=== PATIENT | female | born 2000 | race Caucasian/White ===

== ENCOUNTER 2020-07-09 13:24 | Outpatient (CLI) | payer BC, SELFPAY ==
[2020-07-09 15:25] VITALS: BMI 28.3
[2020-07-09 15:34] VITALS: BP 146/87; PULSE 86
[2020-07-09 15:56] VITALS: BP 131/80; PULSE 85
[2020-07-09 16:05] LABS: Nitrazine Paper, PH Negative
== END 2020-07-09 16:08 | disposition home or self-care (01) ==
LOC: OPOB 15:30 → OBGYN 15:52
PROVIDERS: PCP Nurse Practitioner Family; Visit Provider Family Medicine
DX: O26.899 Other specified pregnancy related conditions, unspecified trimester (principal); Z3A.00 Weeks of gestation of pregnancy not specified; N89.8 Other specified noninflammatory disorders of vagina
CPT/HCPCS: 59025; 83986; 99211

== ENCOUNTER 2020-07-09 19:00 | Inpatient (IN) | payer BC, MEDICAID, SELFPAY ==
[2020-07-09] VITALS (19 sets, daily range): BP systolic 102–123; BP diastolic 58–77; PULSE 62–90; RESP 18; TEMP 36.3–36.4; BMI 28.3
[2020-07-09 18:09] LABS: Nitrazine Paper, PH Positive
[2020-07-09 18:23] LABS: Actim Prom Positive
[2020-07-09 20:15] LABS: Basophils % 0.1 %; Eosinophils % 0.2 %; Hematocrit 38.5 % (37.0-47.0); Hemoglobin 12.8 g/dL (11.5-15.3); Lymphocytes # 1.8 10^3/uL (1.5-6.5); Lymphocytes % 20.3 %; Mean Corpuscular HGB Conc 33.2 g/dL (30.0-36.0); Mean Corpuscular Volume 93.2 fL (81-99); Mean Platelet Volume 11.1 fL (7.4-10.4); Monocytes # 0.6 10^3/uL (0.2-0.9); Monocytes % 7.1 %; Neutrophils # 6.32 10^3/uL (1.8-8.0); Neutrophils % 71.8 %; Nucleated Red Blood Cells % 0 %; Platelet Count 196 10^3/cmm (130-400); Red Blood Count 4.13 10^6/uL (4.1-5.3); Red Cell Distribution Width 11.9 % (12.1-15.1); White Blood Count 8.8 10^3/uL (4.5-13.0)
[2020-07-09] MEDS: dextrose 5%-lactated ringers 1,000 ML 125 ML IV (20:38)
[2020-07-09] MEDS: oxytocin 30 UNIT/500 ML BAG IV (20:39)
[2020-07-10] VITALS (78 sets, daily range): BP systolic 91–175; BP diastolic 50–111; PULSE 57–108; RESP 15–18; TEMP 36.2–36.9; O2SAT 76–98
[2020-07-10] MEDS: lactated ringers 1,000 ML 999 ML IV ×2 (00:12→01:16)
[2020-07-10] MEDS: fentaNYL 50 mcg/mL INJ 2mL IV (00:17)
--- NOTE | 2020-07-10 01:10 | P.ANESASSM_ITS ---
Pre-Anesthetic Assessment Pre-Anesthetic Assessment: Height/Weight: Height 1.65 m Weight 77.111 kg Temp Pulse Resp BP Pulse Ox 97.5 F L 78 18 127/68 97 07/09/20 20:56 07/10/20 01:39 07/10/20 00:17 07/10/20 01:39 07/10/20 01:37 Preop Diagnosis: IUP Proposed Procedure: LABOR EPIDURAL Was Beta Dionicio taken within 24 hours: N/A Was Clonidine taken within 24 hours: N/A Social: Social History: No alcohol and No tobacco Exam: Pre-Anes Outpt Exam: alert, oriented x 3, clear to auscultation bilaterally and regular rate & rhythm Airway: Submandibular: WNL Cervical ROM: WNL MP: 1 History/ROS: No significant history except as noted Pulmonary: Pulmonary: None reported CV/HEM: CV/HEM: None reported : : None reported Hepatic: Hepatic: None reported GI: GI: None reported Metabolic: Metabolic: None reported Musc/skel: Musc/skel: None reported Neuropsych: Neuropsych: None reported Anesthetic Plan: ASA status: 1 Anesthesia: Anesthesia Evaluation Risk of > 500 ml blood loss (7ml/kg in children): No Meds/Allergies Current Medications: Current Medications Generic Name Dose Route Start Last Admin Trade Name Freq PRN Reason Stop Dose Admin Fentanyl 25 - 100 mcg 07/09/20 20:04 07/10/20 00:17 Fentanyl 50 Mcg/ Ml Inj 2ml IV 25 mcg Q1H PRN Administration SEVERE PAIN Dextrose/Lactated Ringer's 1,000 mls @ 125 m ls/hr 07/09/20 20:15 07/09/20 20:38 Dextrose 5%-Lact ated Ringers IV 125 mls/hr .Q8H TITI Administration Lactated Ringer's 1,000 mls @ 999 m ls/hr 07/09/20 20:04 07/10/20 01:16 Lactated Ringers IV 999 mls/hr .Q1H1M PRN Administration Per L&D Rescitati on Protocol Oxytocin 30 unit in 500 ml s @ 1 mls/hr 07/09/20 20:15 07/09/20 20:39 Pitocin IV 1 milliunit/min .Q24H TITI 1 mls/hr Administration Protocol 1 MILLIUNIT/MIN Ropivacaine 200 mg in 100 mls @ 13 mls/hr 07/09/20 20:15 07/10/20 01:38 Naropin Premix EPIDURAL 13 mls/hr .Q7H42M TITI Administration Lactated Ringer's 1,000 mls @ 999 m ls/hr 07/09/20 20:06 07/10/20 01:16 Lactated Ringers IV Infused .Q1H1M PRN Infusion See label comment s PFSH Anesthesia Female Reproductive History: : 1 Data Anesthesia CBC & Chem 7: 07/09/20 19:33 Other Labs: Laboratory Results - last 48 hr 07/09/20 07/09/20 18:00 19:33 WBC 8.8 RBC 4.13 Hgb 12.8 Hct 38.5 MCV 93.2 MCH 31.0 MCHC 33.2 RDW 11.9 L Plt Count 196 MPV 11.1 H Neut % (Auto) 71.8 Lymph % (Auto) 20.3 [place] % (Auto) 7.1 Eos % (Auto) 0.2 Baso % (Auto) 0.1 Neut # (Auto) 6.32 Lymph # (Auto) 1.8 [place] # (Auto) 0.6 Eos # (Auto) 0.0 Baso # (Auto) 0.0 Nucleated RBC % (auto) 0 Nucleated RBCs # 0.0 Insulin-like GF I Positive Cardiac Studies: No Data to Display
--- NOTE | 2020-07-10 01:44 | ANES.PROC ---
Anesthesia Procedures Procedure/Date: 07/10/20 Epidural: Time Out Performed: Yes Consents Signed: Procedure Consent Consent: requested by attending/covering physician Lumbar Level: L4-L5 Epidural position: sitting Epidural procedure: sterile prep of area, 1% lidocaine to numb the area, 18 g needle, negative for paresthesia passed, neg for paresthesia, test dose given, 1.5% xylocaine 1:200k epi (4ML), 0.2% Ropivacaine bolus ml (5ML), placed PCEA, no systemic response, sterile dressing applied, L.U.D. no apparent complications and 0.2% Ropiavacaine @ mls/hr (13)
--- NOTE | 2020-07-10 02:15 | ANES.PROC ---
Anesthesia Procedures Procedure/Date: 07/10/20 Procedure Narrative: Zofran 4mg and Decadron 4mg administered IVP for N/V. patient labor progressing rapidly from 5cm to 7cm. Fentanyl 100mcg per epidural for labor pains
[2020-07-10] MEDS: dextrose 5%-lactated ringers 1,000 ML 125 ML IV (02:17)
[2020-07-10] MEDS: lidocaine 2% INJ 20 mL INJECTION (04:15)
--- NOTE | 2020-07-10 04:37 | PM.DELIVERY ---
Delivery Note: Date of delivery: July 10, 2020 this 19-year-old 1 now para 1 female with an EDC of 07/15/2020 had spontaneous rupture of membranes earlier the evening of admission. She had been to [facility] labor and delivery earlier in the evening but at that time nitrazine was negative. When she returned it was definitely positive with a positive actin ROM. She was ramirez very irregularly and was started on Pitocin more with a moderate dose. She did well until she began having some occasional late decelerations when the Pitocin was on 11 mg/min the Pitocin was then cut to 6 and she was given a fluid bolus. The infant then recovered very well. She was given epidural anesthesia and quickly dilated to complete cervical dilatation. The epidural seem to take the edge off of some of it but she had lots of discomfort and pressure when she was ramirez. She pushed for probably close to an hour and was able to deliver by spontaneous vaginal livery healthy, viable male infant at 03 56. After delivery of the head the mouth and nose were suctioned at the perineum followed by delivery of the right shoulder anteriorly followed by the left shoulder posteriorly and the infant was completely delivered without problems. The infant was then suctioned again with a bulb syringe followed by placing the on mother's abdomen. After approximately 1 minute, the umbilical cord was clamped and then cut by the 's father. The umbilical cord had 3 blood vessels. There was no nuchal cord at delivery. The patient cried lustily. There was a small second-degree episiotomy followed by a tear that went to third degree perineal laceration. This was repaired using Vicryl suture and a layered surgical closure. Initially the vagina was repaired followed by the perineum in a layered fashion. She did receive a small amount of local anesthesia but the epidural work pretty well with the episiotomy repair. Infant required suctioning at the warmer but Apgars were 8 and 9 and the infant is doing very well at this time. Estimated blood loss approximately 243 mL. Pre-Delivery Course: This patient was followed by this physician throughout her course without significant problems or concerns. Maternal blood type was A+ with antibody screen negative. Hepatitis B, hepatitis C, RPR and HIV were negative. Rubella is immune and group B strep was negative. Initial maternal glucose screen was a little elevated at 167, but she had eaten prior to that and a glucose tolerance test was completely normal as well as hemoglobin A1c. The patient did very well throughout her course without significant problems or concerns. She had spontaneous rupture membranes at home shortly prior to admission. Delivery: Spontaneous vaginal delivery. Post-Delivery Status: Patient is doing well and will be followed for routine postdelivery care. A&P Assessment and plan (1) Normal spontaneous vaginal delivery: Patient did very well and presently is doing well. We will place an ice pack on her perineum as needed. We will continue routine orders and adjust orders as necessary. Status: Acute Coding Level of Care Code Acute Assistant Product Manager for Chg Fwd Diagnoses Normal spontaneous vaginal delivery O80
[2020-07-10] MEDS: benzocaine-menthol 78 gm Canister 1 SPRAY TOPICAL ×2 (05:56→07:47)
[2020-07-10] MEDS: lanolin oint 7 gm 1 APPLIC TOPICAL (05:57)
[2020-07-10] MEDS: ibuprofen 800 mg tablet PO ×3 (07:46→21:39)
[2020-07-10] MEDS: HYDROcodone-acetaminophen 5-325 mg Tablet PO ×3 (07:47→14:40)
[2020-07-10] MEDS: prenatal vitamin Capsule 1 CAP PO (09:21)
[2020-07-10] MEDS: docusate sodium 100 mg Capsule PO ×2 (09:21→18:20)
[2020-07-10 17:13] LABS: Hematocrit 29.8 % (37.0-47.0); Hemoglobin 9.8 g/dL (11.5-15.3); Mean Corpuscular HGB Conc 32.9 g/dL (30.0-36.0); Mean Corpuscular Hemoglobin 31.1 pg (28.0-34.0); Mean Corpuscular Volume 94.6 fL (81-99); Mean Platelet Volume 11.2 fL (7.4-10.4); Platelet Count 154 10^3/cmm (130-400); Red Blood Count 3.15 10^6/uL (4.1-5.3); Red Cell Distribution Width 12.1 % (12.1-15.1); White Blood Count 11.8 10^3/uL (4.5-13.0)
[2020-07-11 05:27] VITALS: BP 104/64; PULSE 72
[2020-07-11] MEDS: docusate sodium 100 mg Capsule PO (08:31)
[2020-07-11] MEDS: prenatal vitamin Capsule 1 CAP PO (08:31)
[2020-07-11] MEDS: ibuprofen 800 mg tablet PO (08:31)
[2020-07-11 08:32] VITALS: BP 112/61; PULSE 115; RESP 16; TEMP 36.4
--- NOTE | 2020-07-11 08:43 | P.DS_ITS ---
Discharge Providers PRODUCT SAFETY ADMINISTRATOR Date of Admission: 07/09/20 19:00 Date of Discharge: 07/11/20 Attending Provider at Admission: Ronni Horton MD Attending Provider at Discharge: Ronni Horton MD Primary Care Provider: Lorelei Quintanilla APN Diagnoses at Discharge Discharge Diagnosis (1) Normal spontaneous vaginal delivery: Status: Acute Reason for Visit Reason for Visit: LEAKING FLUID Hospital Course Hospital Course Patient delivered by spontaneous vaginal delivery very early yesterday morning after spontaneous rupture of membranes. Since delivery, she has done extremely well. She is breast-feeding well using a breast shield and is ambulating well and tolerating a regular diet. She is felt to be stable for discharge this morning. Information Peripartum Data: Infant Delivery Method: Vaginal Physical Exam Const: COMMON NORMALS: no acute distress Resp: COMMON NORMALS: normal respiratory effort, No retractions and clear to auscultation bilaterally AUSCULTATION: clear to auscultation bilaterally Cardio: COMMON NORMALS: regular rate and regular rhythm RATE: regular rate RHYTHM: regular rhythm GI: COMMON NORMALS: Normal to inspection, nondistended, normoactive bowel sounds present, Soft to palpation (Fundus is firm.) and non-tender PALPATION: Yes Soft to palpation (Fundus is firm.) Extremity: COMMON NORMALS: normal to inspection, full ROM and no pedal edema Neuro: COMMON NORMALS: no focal motor deficits and no sensory deficits noted Psych: COMMON NORMALS: mental status grossly normal, cooperative and normal affect Urinary Catheter Management^: Huitron: Cath Placed During This Visit: yes, but has since been removed by the nurse Reason for Continuing Indwelling Catheter: Decision to DC Catheter Urinary Catheter Date of Insertion: 07/10/20 Urinary Catheter Time of Insertion: 01:55 Date Urinary Catheter Removed: 07/10/20 Time Urinary Catheter Discontinued: 02:25 Discharge Data Data Completed and Pending: Labs from last 24 hours 07/10/20 16:33 WBC 11.8 RBC 3.15 L Hgb 9.8 L Hct 29.8 L MCV 94.6 MCH 31.1 MCHC 32.9 RDW 12.1 Plt Count 154 MPV 11.2 H Vitals: Last Vital Signs Temp 97.5 F L 07/11/20 08:32 Pulse 115 H 07/11/20 08:32 Resp 16 07/11/20 08:32 BP 112/61 07/11/20 08:32 Pulse Ox 82 L 07/10/20 02:17 Discharge Plan Discharge Patient Disposition: Home Condition: Stable Prescriptions: New docusate sodium [DOK] 100 mg Capsule 100 mg PO BID Qty: 60 RF: 2 ibuprofen 800 mg Tablet 800 mg PO TID Qty: 90 RF: 2 Continued 1 mg Tablet 1 tab PO DAILY RF: 0 Discharge Orders: Discharge Order (Routine); Ordered 07/11/20 Ordered By: Ronni Horton Referrals: Ronni Horton MD [Physician] - 08/24/20 2:15 pm (Your 6 week post- appointment is scheduled for 08/24/20 at 2:[address] Horton. ) Discharge Diet: Usual diet Discharge Activity: Resume usual activity Patient Instructions: Vitamins (By mouth), Your Baby (GEN), Pre-eclampsia and Eclampsia (DC), Bleeding (DC), OB Discharge Report, OB Food/Drug Interaction Guide, OB Proud Parent Packet, OB Vaginal Deliveries, Abnormal Bleeding Discharge Attestations PRODUCT SAFETY ADMINISTRATOR Time Spent in Discharge Care*: less than 30 min Specific Discharge Activities: Specific discharge activities: educating patient, documenting/other paperwork and evaluating patient/reviewing data Coding Level of Care Code Acute Medical Administrative for Chg Fwd Diagnoses Normal spontaneous vaginal delivery O80
[2020-07-11 09:41] VITALS: BP 112/61; PULSE 115; RESP 16; TEMP 36.4
== END 2020-07-11 09:35 | disposition home or self-care (01) | DRG 768 ==
LOC: OBGYN 07-10 07:50 → OPOB 07-14 12:08 → OBGYN 07-14 12:08
PROVIDERS: Admitting Provider Family Medicine; PCP Nurse Practitioner Family; Visit Provider Family Medicine
DX: O76 Abnormality in fetal heart rate and rhythm complicating labor and delivery (principal); Z37.0 Single live birth; O70.20 Third degree perineal laceration during delivery, unspecified; Z3A.39 39 weeks gestation of pregnancy
CPT/HCPCS: 36415; 51702; 59409; 83986; 84112; 85025; 85027; 98960; J1100; J2405; J2795; J3010

== ENCOUNTER 2021-08-10 19:45 | Outpatient (CLI) | payer BC, MEDICAID, SELFPAY ==
[2021-08-10 19:58] VITALS: BP 123/78; PULSE 88
[2021-08-10 20:03] VITALS: BMI 26.6
[2021-08-10 20:05] VITALS: RESP 16
[2021-08-10 20:19] VITALS: BP 108/65; PULSE 80
== END 2021-08-10 20:33 | disposition home or self-care (01) ==
LOC: OPOB 19:52 → OBGYN 19:53
PROVIDERS: PCP Nurse Practitioner Family; Visit Provider Family Medicine
DX: O26.899 Other specified pregnancy related conditions, unspecified trimester (principal); Z3A.00 Weeks of gestation of pregnancy not specified; R10.9 Unspecified abdominal pain
CPT/HCPCS: 59025; 99211

== ENCOUNTER 2021-09-09 12:30 | Outpatient (CLI) | payer BC, MEDICAID, SELFPAY ==
[2021-09-09] VITALS (9 sets, daily range): BP systolic 105–122; BP diastolic 56–74; PULSE 76–89; RESP 16; TEMP 36.5; BMI 26.6
[2021-09-09 13:25] LABS: Nitrazine Paper, PH Negative
[2021-09-09 13:44] LABS: Actim Prom Negative
--- NOTE | 2021-09-09 18:56 | PC.NURSE ---
patient left unit at 1357
== END 2021-09-09 18:56 | disposition home or self-care (01) ==
LOC: OPOB 12:37 → OBGYN 12:38
PROVIDERS: PCP Nurse Practitioner Family; Visit Provider Family Medicine
DX: O26.899 Other specified pregnancy related conditions, unspecified trimester (principal); Z3A.00 Weeks of gestation of pregnancy not specified; N89.8 Other specified noninflammatory disorders of vagina
CPT/HCPCS: 59025; 83986; 84112; 99211

== ENCOUNTER 2021-09-14 18:49 | Inpatient (IN) | payer BC, MEDICAID, SELFPAY ==
[2021-09-14] VITALS (47 sets, daily range): BP systolic 94–141; BP diastolic 56–88; PULSE 65–121; TEMP 36.6–36.7; O2SAT 97–100; BMI 27.1
[2021-09-14 14:56] LABS: Basophils % 0.2 %; Eosinophils % 0.2 %; Hematocrit 39.5 % (37.0-47.0); Hemoglobin 13.4 g/dL (11.5-15.3); Mean Corpuscular HGB Conc 33.9 g/dL (30.0-36.0); Mean Corpuscular Hemoglobin 32.1 pg (28.0-34.0); Mean Corpuscular Volume 94.5 fl (81-99); Mean Platelet Volume 11.2 fL (7.4-10.4); Monocytes # 0.7 10^3/uL (0.2-0.9); Monocytes % 8.3 %; Neutrophils # 5.94 10^3/uL (1.8-8.0); Neutrophils % 67.6 %; Nucleated Red Blood Cells % 0 %; Platelet Count 179 10^3/cmm (130-400); Red Blood Count 4.18 10^6/uL (4.1-5.3); Red Cell Distribution Width 12.2 % (12.1-15.1); White Blood Count 8.8 10^3/uL (4.5-13.0)
[2021-09-14] MEDS: miSOPROStol 100 mcg tablet 25 MCG VAGINAL (14:56)
[2021-09-14] MEDS: lactated ringers 1,000 ML 999 ML IV ×2 (16:59→18:02)
--- NOTE | 2021-09-14 18:58 | PM.OPHPUD ---
Labor & Delivery H&P Update Date of Procedure: September 14, 2021 Date H&P Performed: 09/13/21 Changes to previous documentation: The patient's cervix was dilated to 5 cm, 60% effaced. Admission Diagnosis: Preop diagnosis: IUP Planned procedure: Spontaneous vaginal delivery Other information: Patient is a 20-year-old 2 para 1-0-0-1 at 39 weeks estimated gestational age who presented to the hospital complaining of vaginal pressure. She was noted to be 5 cm dilated and 60% effaced. Her labs were unremarkable. Her blood type was a positive. Her antibody screen was negative. She was rubella immune. Her glucose screen was negative. She was GBS negative. The remainder of her labs were within normal limits. Related Problem List Diagnoses (1) 39 weeks gestation of : I anticipate a routine labor process and a spontaneous vaginal delivery.
--- NOTE | 2021-09-14 19:02 | PM.DELIVERY ---
Delivery Note: Date of delivery: September 14, 2021 Pre-delivery diagnoses: 1. 20-year-old 2 para 1-0-0-1 at 39 weeks estimated gestational age presenting in active labor Post-delivery diagnoses: That is post spontaneous vaginal delivery Procedure: Spontaneous vaginal delivery Delivering Physician: Mauro Lee Estimated blood loss (mL): 100 Pre-Delivery Course: The patient presented to the hospital complaining of vaginal pressure. She was found to be 5 cm dilated and 60% effaced. Cytotec x1 was placed per vagina. An amniotomy was performed. The patient progressed to complete without difficulty. She was hoping for an epidural, but she progressed to quickly to have an epidural. Delivery: DELIVERY: The patient progressed to complete without difficulty. She delivered a female with a weight of 6 pounds 10 ounces with Apgars of 10, 10. The baby was delivered from the DAVID position and placed on the mother's abdomen. The cord was then clamped and cut 1 minute after delivery There was no nuchal cord. There was no meconium. The placenta and 3 vessel cord were delivered intact shortly thereafter. The perineum and vaginal vault were carefully examined. Several small intravaginal lacerations were noted. None of them were bleeding significantly. Both the mother and the baby were in stable condition. Post-Delivery Status: Good A&P Assessment and plan (1) Spontaneous vaginal delivery: I anticipate routine care. Status: Acute Coding Level of Care Code Acute Statistical Clerk Advertising for Chg Fwd Diagnoses Spontaneous vaginal delivery O80
[2021-09-14] MEDS: HYDROcodone-acetaminophen 5-325 mg Tablet PO (19:33)
[2021-09-14] MEDS: benzocaine-menthol 78 gm Canister 1 SPRAY TOPICAL (19:37)
[2021-09-14] MEDS: ibuprofen 800 mg tablet PO (21:49)
[2021-09-15] VITALS (7 sets, daily range): BP systolic 93–116; BP diastolic 55–72; PULSE 60–86; TEMP 36.6–39.6
[2021-09-15] MEDS: HYDROcodone-acetaminophen 5-325 mg Tablet PO ×3 (03:18→19:48)
--- NOTE | 2021-09-15 06:56 | P.DS_ITS ---
Discharge Providers CONSTRUCTION ELECTRICIAN Date of Admission: 09/14/21 18:49 Date of Discharge: 09/16/21 Attending Provider at Admission: Mauro Lee MD Attending Provider at Discharge: Mauro Lee MD Primary Care Provider: Ronni Horton Diagnoses at Discharge Discharge Diagnosis (1) Spontaneous vaginal delivery: Status: Resolved Reason for Visit Reason for Visit: Pressure, low back pain Hospital Course Hospital Course The patient presented to the hospital 5 cm dilated. She was placed on Cytotec. She progressed to complete without difficulty. She had an unremarkable delivery of a healthy female infant. Her course was also unremarkable. Her pain was well controlled. Her bleeding was within normal limits. She breast- fed well. There were no other concerns. Information Peripartum Data: Delivery Method: Vaginal Physical Exam Narrative: The patient is alert. She appears comfortable. Her heart has a regular rate and rhythm with no murmurs appreciated. Lungs are clear to auscultation bilaterally. Her fundus is firm and below the umbilicus. Discharge Data Studies Completed and Pending Pending at discharge Category Date Time Status Hemagram Timed Lab 09/15/21 07:07 Uncollected Laboratory Results WBC 8.8 10^3/uL (4.5-13.0) 09/14/21 14:40 RBC 4.18 10^6/uL (4.1-5.3) 09/14/21 14:40 Hgb 13.4 g/dL (11.5-15.3) 09/14/21 14:40 Hct 39.5 % (37.0-47.0) 09/14/21 14:40 MCV 94.5 fl (81-99) 09/14/21 14:40 MCH 32.1 pg (28.0-34.0) 09/14/21 14:40 MCHC 33.9 g/dL (30.0-36.0) 09/14/21 14:40 RDW 12.2 % (12.1-15.1) 09/14/21 14:40 Plt Count 179 10^3/cmm (130-400) 09/14/21 14:40 MPV 11.2 fL (7.4-10.4) H 09/14/21 14:40 Neut % (Auto) 67.6 % 09/14/21 14:40 Lymph % (Auto) 23.0 % 09/14/21 14:40 Baker % (Auto) 8.3 % 09/14/21 14:40 Eos % (Auto) 0.2 % 09/14/21 14:40 Baso % (Auto) 0.2 % 09/14/21 14:40 Neut # (Auto) 5.94 10^3/uL (1.8-8.0) 09/14/21 14:40 Lymph # (Auto) 2.0 10^3/uL (1.5-6.5) 09/14/21 14:40 Baker # (Auto) 0.7 10^3/uL (0.2-0.9) 09/14/21 14:40 Eos # (Auto) 0.0 10^3/uL (0.0-0.8) 09/14/21 14:40 Baso # (Auto) 0.0 10^3/uL (0.0-0.1) 09/14/21 14:40 Nucleated RBC % (auto) 0 % 09/14/21 14:40 Nucleated RBCs # 0.0 /100WBC 09/14/21 14:40 Vitals Last Vital Signs Temp 98.0 F 09/14/21 14:32 Pulse 78 09/15/21 05:05 BP 100/59 09/15/21 05:05 Pulse Ox 100 09/14/21 18:24 Discharge Plan Discharge Patient Disposition: Home Condition: Stable Prescriptions: New ibuprofen 800 mg Tablet 800 mg PO TID Qty: 45 0RF Continued [id number]-FA 1 mg Tablet 1 tab PO DAILY 0RF Discharge Orders: Discharge Order (Routine); Ordered 09/15/21 Ordered By: Mauro Lee Referrals: Mauro Lee MD [Physician] - 6 Weeks Discharge Diet: Usual diet Discharge Activity: Limit activity as instructed Patient Instructions: Preeclampsia and Eclampsia After Delivery (GEN), OB Discharge Report, OB Food/Drug Interaction Guide, OB Care at Home, Opioid Safety, OB Home Care, OB Proud Parent Packet Discharge Attestations CONSTRUCTION ELECTRICIAN Time Spent in Discharge Care*: less than 30 min Coding Level of Care Code Acute Car Retarder Operator for Chg Fwd Diagnoses Spontaneous vaginal delivery O80
[2021-09-15 07:36] LABS: Hematocrit 36.5 % (37.0-47.0); Hemoglobin 12.1 g/dL (11.5-15.3); Mean Corpuscular HGB Conc 33.2 g/dL (30.0-36.0); Mean Corpuscular Hemoglobin 31.9 pg (28.0-34.0); Mean Corpuscular Volume 96.3 fl (81-99); Mean Platelet Volume 11.2 fL (7.4-10.4); Platelet Count 145 10^3/cmm (130-400); Red Blood Count 3.79 10^6/uL (4.1-5.3); Red Cell Distribution Width 12.3 % (12.1-15.1); White Blood Count 10.4 10^3/uL (4.5-13.0)
[2021-09-15] MEDS: ibuprofen 800 mg tablet PO ×2 (08:18→16:24)
[2021-09-15] MEDS: docusate sodium 100 mg Capsule PO (08:19)
[2021-09-15] MEDS: prenatal vitamin Capsule 1 CAP PO (08:19)
[2021-09-15] MEDS: lanolin oint 7 gm 1 APPLIC TOPICAL (16:30)
== END 2021-09-15 21:22 | disposition home or self-care (01) | DRG 807 ==
LOC: OPOB 18:50 → OBGYN 18:50
PROVIDERS: Admitting Provider Family Medicine; PCP Nurse Practitioner Family; Visit Provider Family Medicine
DX: O80 Encounter for full-term uncomplicated delivery (principal); Z37.0 Single live birth; Z3A.39 39 weeks gestation of pregnancy
CPT/HCPCS: 12345; 36415; 59025; 59409; 85025; 85027

== ENCOUNTER 2023-05-28 16:30 | Emergency (ER) | payer MEDICAID, SELFPAY ==
--- NOTE | 2023-05-28 16:33 | USR_ITS ---
PROCEDURE INFORMATION: Exam: US First Trimester, Transabdominal and US , Transvaginal Exam date and time: 05/28/2023 5:32 PM Age: 22 years old Clinical indication: complicated by abdominal or pelvic pain; Lower; First trimester (<14 weeks 0 days); Gestational age or lmp: No iup visualized at this time. ; Additional info: Vaginal bleeding TECHNIQUE: Imaging protocol: Real-time transabdominal obstetrical ultrasound of the maternal pelvis and a first trimester , less than 14 weeks 0 days, with image documentation. Transvaginal imaging was used for better evaluation of the fetus, adnexa, and/or cervix. COMPARISON: US OB >= 14 weeks fetus [id number] 05/04/2021 4:25 PM FINDINGS: Gestation: No intrauterine identified at this time. MATERNAL: Uterus: Unremarkable. Cervix: Unremarkable. Right ovary/adnexa: Unremarkable ovary. Left ovary/adnexa: Unremarkable ovary. Intraperitoneal space: No intraperitoneal free fluid. US/US OB <= 14 weeks fetus [id number] IMPRESSION: 1. No intrauterine identified. 2. Normal ovaries with no ovarian torsion at the time of the examination.
[2023-05-28 16:34] VITALS: BP 118/79; PULSE 77; RESP 18; TEMP 36.7; O2SAT 100; BMI 24.2
--- NOTE | 2023-05-28 17:03 | ED_ITS ---
HPI - 2 General: Chief complaint: Abdominal Pain Stated complaint: abd cramping, spotting 8-9 weeks preg Time Seen by Provider: 05/28/23 17:03 History of Present Illness: 22-year-old female comes in today with i ncreased vaginal bleeding. Patient was seen 2 to [address] Lee's office and was noted to be ultrasound at that time was unremarkable per patient. Reported that she did not get the report at that time. Today patient has had some increased bleeding where she has had 2 pads saturated today. Patient reports no nausea or vomiting or lightheadedness or dizziness. Review of Systems 2 General: Reports: 10 or more systems reviewed and unremarkable except in HPI and below Physical Exam 2 Const: COMMON NORMALS: alert HENMT: COMMON NORMALS: normocephalic HEAD & SCALP: normocephalic Neck/C-Spine: COMMON NORMALS: full ROM Resp: COMMON NORMALS: normal respiratory effort Cardio: COMMON NORMALS: regular rate RATE: regular rate Back/Pelvis: COMMON NORMALS: thoracic and lumbar spine normal to inspection Extremity: COMMON NORMALS: normal to inspection Neuro: SENSORIUM/ORIENTATION: Yes alert Skin: COMMON NORMALS: turgor normal GENERAL SKIN EXAM: turgor normal Course 2 Vital Signs: Vital signs: Vital Signs Temperature 98.0 F 05/28/23 16:34 Pulse Rate 77 05/28/23 16:34 Respiratory Rate 18 05/28/23 16:34 Blood Pressure 118/79 05/28/23 16:34 Pulse Oximetry 100 05/28/23 16:34 Oxygen Delivery Me thod Room Air 05/28/23 16:34 MDM - OB/Uterine Contractions Medical Decision Making Patient presents today with complaints of increased vaginal bleeding during . Patient is approximately 8 weeks along. Respirations are even lungs are clear to auscultation. Vital signs are normal. Differential diagnosis includes but not limited to placenta previa, spontaneous , threatened , anxiety about health. Ultrasound noted no intrauterine . CBC was normal. hCG was 1800. Patient was A+. Reviewed exam with patient with recommendations for follow-up with [facility] for further treatment. Patient was understanding and agreed to plan. Lab Data 05/28/23 17:00 Radiology Impressions Ultrasound 05/28/23 16:33 IMPRESSION: 1. No intrauterine identified. 2. Normal ovaries with no ovarian torsion at the time of the examination. Laboratory Results WBC 8.34 10^3/uL (3.29-11.43) 05/28/23 17:00 RBC 4.19 10^6/uL (3.85-5.65) 05/28/23 17:00 Hgb 12.30 g/dL (11.27-16.99) 05/28/23 17:00 Hct 37.5 % (36-47) 05/28/23 17:00 MCV 89.5 fl (85-98) 05/28/23 17:00 MCH 29.4 pg (27-33) 05/28/23 17:00 MCHC 32.8 g/dL (30-55) 05/28/23 17:00 RDW 12.6 % (12.1-15.1) 05/28/23 17:00 Plt Count 245 10^3/cmm (157-399) 05/28/23 17:00 MPV 9.9 fL (7.4-10.4) 05/28/23 17:00 Neut % (Auto) 64.9 % 05/28/23 17:00 Lymph % (Auto) 27.8 % 05/28/23 17:00 [place] % (Auto) 6.6 % 05/28/23 17:00 Eos % (Auto) 0.5 % 05/28/23 17:00 Baso % (Auto) 0.1 % 05/28/23 17:00 Neut # (Auto) 5.41 10^3/uL (1.8-7.7) 05/28/23 17:00 Lymph # (Auto) 2.3 10^3/uL (0.8-4.8) 05/28/23 17:00 [place] # (Auto) 0.6 10^3/uL (0.2-0.9) 05/28/23 17:00 Eos # (Auto) 0.0 10^3/uL (0.0-0.8) 05/28/23 17:00 Baso # (Auto) 0.0 10^3/uL (0.0-0.1) 05/28/23 17:00 Nucleated RBC % (auto) 0 % 05/28/23 17:00 Nucleated RBCs # 0.0 /100WBC 05/28/23 17:00 Ser , Semi-Qnt 1822.00 mIU/mL 05/28/23 17:00 Blood Type A Positive 05/28/23 17:00 Rho(D) Type Rh positive 05/28/23 17:00 Antibody Screen Negative 05/28/23 17:00 All radiology interpretation(s) finalized by discharge Discharge Plan Discharge Patient Disposition: Home Clinical Impression: Abdominal pain Condition: Stable Prescriptions: No Action jfynmtkf-opt-Rd-FA 1 mg Tablet 1 tab PO DAILY ibuprofen 800 mg Tablet 800 mg PO TID Qty: 45 0RF Discharge Orders: Discharge ED (Routine); Ordered 05/28/23 Ordered By: Joseph Lorenzo Referrals: Mauro Lee MD [Primary Care Provider] - Discharge Diet: Usual diet Discharge Activity: Increase activity as tolerated Patient Instructions: Threatened Miscarriage (ED), Abdominal Pain (ED) Activity Restrictions/Additional Instructions: Follow-up with Dr. Lee's office tomorrow Monday at the latest. Return to ER for worsening bleeding or feeling of passing out or high fever. Coding Level of Care Code ED Gum Worker for Sandra Jerome
[2023-05-28 17:17] LABS: Basophils % 0.1 %; Eosinophils % 0.5 %; Hematocrit 37.5 % (36-47); Lymphocytes # 2.3 10^3/uL (0.8-4.8); Lymphocytes % 27.8 %; Mean Corpuscular HGB Conc 32.8 g/dL (30-55); Mean Corpuscular Hemoglobin 29.4 pg (27-33); Mean Corpuscular Volume 89.5 fl (85-98); Mean Platelet Volume 9.9 fL (7.4-10.4); Monocytes # 0.6 10^3/uL (0.2-0.9); Monocytes % 6.6 %; Neutrophils # 5.41 10^3/uL (1.8-7.7); Neutrophils % 64.9 %; Nucleated Red Blood Cells % 0 %; Platelet Count 245 10^3/cmm (157-399); Red Blood Count 4.19 10^6/uL (3.85-5.65); Red Cell Distribution Width 12.6 % (12.1-15.1); White Blood Count 8.34 10^3/uL (3.29-11.43)
== END 2023-05-28 18:42 | disposition home or self-care (01) ==
PROVIDERS: Emergency Medicine; Emergency Provider Nurse Practitioner Family; PCP Family Medicine
DX: O26.891 Other specified pregnancy related conditions, first trimester (principal); R10.9 Unspecified abdominal pain; Z3A.08 8 weeks gestation of pregnancy
CPT/HCPCS: 36415; 76801; 84702; 85025; 86850; 86900; 99284

== ENCOUNTER 2024-03-30 13:37 | Emergency (ER) | payer MEDICAID, SELFPAY ==
[2024-03-30 14:05] VITALS: BP 106/64; PULSE 63; RESP 18; TEMP 36.8; O2SAT 94
[2024-03-30 14:36] LABS: Bilirubin Urine Negative (Negative); Blood Urine Negative (Negative); Glucose Urine UA Negative (Normal); Ketones Urine Trace (Negative); Leukocyte Esterase Urine Trace (Negative); Nitrate Urine Negative (Negative); Protein Urine Trace (Negative); Specific Gravity, Urine 1.027 (1.005-1.030); Urine Appearance Cloudy (CLEAR); Urine Color Yellow (Yellow); pH Urine 7.5 (5-7)
[2024-03-30 14:45] LABS: Basophils % 0.2 %; Hematocrit 38.7 % (36-47); Lymphocytes # 1.2 10^3/uL (0.8-4.8); Lymphocytes % 12.3 %; Mean Corpuscular HGB Conc 31.8 g/dL (30-55); Mean Corpuscular Hemoglobin 27.6 pg (27-33); Mean Corpuscular Volume 86.8 fl (85-98); Mean Platelet Volume 10.3 fL (7.4-10.4); Monocytes # 0.5 10^3/uL (0.2-0.9); Monocytes % 5.2 %; Neutrophils # 7.98 10^3/uL (1.8-7.7); Nucleated Red Blood Cells % 0 %; Platelet Count 228 10^3/cmm (157-399); Red Blood Count 4.46 10^6/uL (3.85-5.65); Red Cell Distribution Width 13.3 % (12.1-15.1); White Blood Count 9.74 10^3/uL (3.29-11.43)
[2024-03-30 14:50] LABS: Bacteria Urine 1+ /hpf; RBC Urine 0-4 /hpf (0-2); Squamous Epithelial Cell Urine 0-4 /hpf (0-5); UA Manual Slide Review YES; WBC Urine 0-4 /hpf (0-5)
[2024-03-30 14:51] LABS: Amorphous Sediment Urine 1+ /hpf; Mucus Urine 1+ /hpf
[2024-03-30 14:59] LABS: HCG, Serum Qual Negative (Negative)
[2024-03-30 15:05] LABS: Alanine Aminotransferase 65 U/L (0-33); Albumin Level 4.6 g/dL (3.5-5.2); Alkaline Phosphatase 90 U/L (35-105); Anion Gap 13.9 (5-19); Aspartate Amino Transferase 112 U/L (0-32); Blood Urea Nitrogen 10 mg/dL (6-20); Calcium 10.6 mg/dL (8.5-10.5); Carbon Dioxide 27 mmol/L (22-29); Chloride 102 mmol/L (98-107); Creatinine Clr Calc Pharmacy 139.5486; Globulin 2.8 g/dL (1.3-4.6); Glomerular Filtration Rate 123.9 mL/min (90-130); Glucose 101 mg/dL (65-115); Lipase 19 U/L (13-60); Osmolality Calculated 287 mOsm/kg (285-295); Potassium 3.9 mmol/L (3.5-5.1); Sodium 139 mmol/L (136-145); Total Bilirubin 0.6 mg/dL (0.15-1.2); Total Protein 7.4 g/dL (6.6-8.7)
--- NOTE | 2024-03-30 15:14 | CTR_ITS ---
PROCEDURE INFORMATION: Exam: CT Abdomen And Pelvis With Contrast Exam date and time: 03/30/2024 3:50 PM Age: 23 years old Clinical indication: Abdominal pain; Generalized; Additional info: Abd pain TECHNIQUE: Imaging protocol: Computed tomography of the abdomen and pelvis with contrast. Axial, coronal and sagittal reformatted images were created and reviewed. Radiation optimization: All CT scans at this facility use at least one of these dose optimization techniques: automated exposure control; mA and/or kV adjustment per patient size (includes targeted exams where dose is matched to clinical indication); or iterative reconstruction. Contrast material: OMNIPAQUE 350; Contrast volume: 100 ml; Contrast route: INTRAVENOUS (IV); COMPARISON: US OB <= 14 weeks fetus [id number] 05/28/2023 5:32 PM RADIATION DOSE METRICS: Total DLP (mGy-cm): 384.1 FINDINGS: Liver: Unremarkable. Gallbladder and biliary ducts: No radiodense gallstones. No biliary ductal dilatation. Pancreas: Unremarkable. Spleen: Unremarkable. Adrenal glands: Normal. No mass. Kidneys and ureters: No mass. No radiodense calculi. No hydronephrosis. Stomach and bowel: No bowel wall thickening. No obstruction. No pneumatosis. Appendix: Normal. Intraperitoneal space: Trace nonspecific free pelvic fluid, likely physiologic. No organized fluid collection. No free air. Vasculature: Unremarkable. No aneurysm. Lymph nodes: Small mesenteric lymph nodes, nonspecific in appearance. No pathologically enlarged lymph nodes. Urinary bladder: Mild circumferential urinary bladder wall thickening, likely secondary to underdistention. Reproductive: Unremarkable. Bones/joints: No acute osseous abnormality. Soft tissues: Unremarkable. CT/CT abdomen pelvis w con* [id number]: 1[address] No [address] evidence of acute intra-abdominal or pelvic pathology. 2. Additional findings, as above.
--- NOTE | 2024-03-30 15:23 | W.ED.ABDPA2 ---
HPI - Abdominal Pain General: Chief Complaint: Abdominal Pain Stated Complaint: severe heartburn Time Seen by Provider: 03/30/24 15:00 Source: patient Mode of arrival: ambulatory Limitations: no limitations History of Present Illness: 23-year-old female states she has been having upper abdominal pain over the last few days she states has been a burning pain she is taken Tums with minimal relief states pain seems to come and go denies any worse improving factors rates pain a 2 out of 10 currently denies any diarrhea has had 1 episode of vomiting. Associated Symptoms: Reports nausea and vomiting; Denies chills, diarrhea, dysuria and fever(s) Related Data Previous Rx's Medication Instructions Recorded ondansetron 4 mg disintegrating 4 mg PO Q6H PRN nausea and 03/30/24 tablet vomiting #14 tabs pantoprazole 40 mg tablet,delayed 40 mg PO DAILY #60 tabs 03/30/24 release (Protonix) Allergies Allergy/AdvReac Type Severity Reaction Status Date / Time No Known Allergies Allergy Verified 05/28/23 16:34 Review of Systems Const: Denies: fever(s), chills, body aches or change in appetite ENMT: Denies: throat pain or dental pain Card: Denies: chest pain Resp: Denies: dyspnea GI: Reports: abdominal pain, nausea and vomiting; Denies: diarrhea : Denies: dysuria Musc: Denies: neck pain or back pain Skin/Breast: Denies: rash Neuro: Denies: headache(s) Physical Exam Const: COMMON NORMALS: no acute distress, patient oriented x3 and healthy appearing HENMT: COMMON NORMALS: normocephalic and atraumatic HEAD & SCALP: normocephalic and atraumatic Eye: COMMON NORMALS: conjunctivae normal CONJUNCTIVA: Yes conjunctivae normal Neck/C-Spine: COMMON NORMALS: full ROM and supple Chest: COMMONS NORMALS: normal inspection of the chest Resp: COMMON NORMALS: normal respiratory effort, No retractions, No use of accessory muscles and clear to auscultation bilaterally AUSCULTATION: clear to auscultation bilaterally Cardio: COMMON NORMALS: regular rate, regular rhythm and No murmurs present (Cardio) RATE: regular rate RHYTHM: regular rhythm GI: COMMON NORMALS: Normal to inspection, nondistended, normoactive bowel sounds present, Soft to palpation, non-tender and no masses PALPATION: Yes Soft to palpation Extremity: COMMON NORMALS: normal to inspection and full ROM Neuro: COMMON NORMALS: patient oriented x3, moves all extremities and no focal motor deficits Psych: COMMON NORMALS: mental status grossly normal, Normal thought process present and cooperative THOUGHT PROCESS: Normal thought process present Skin: COMMON NORMALS: no rashes or lesions noted and no wounds GENERAL SKIN EXAM: no rashes or lesions noted Course Vital Signs: Vital signs: Vital Signs Temperature 98.3 F 03/30/24 14:05 Pulse Rate 63 03/30/24 14:05 Respiratory Rate 18 03/30/24 14:05 Blood Pressure 106/64 03/30/24 14:05 Pulse Oximetry 94 03/30/24 14:05 Oxygen Delivery Me thod Room Air 03/30/24 14:05 MDM - Abdominal Pain Medical Decision Making Patient presents with abdominal pain CT blood work here is normal is likely gastritis will start on Protonix along with Zofran we will get her follow-up with surgery she is return for worsening she understands agrees to plan. Medical Records I reviewed the patient's medical records. Lab Data I reviewed the patient's lab results. 03/30/24 14:20 03/30/24 14:20 Labs/Radiology: Radiology Impressions Abdomen/Pelvis CT 03/30/24 15:[address]: [address] evidence of acute intra-abdominal or pelvic pathology. 2. Additional findings, as above. Laboratory Results WBC 9.74 10^3/uL (3.29-11.43) 03/30/24 14:20 RBC 4.46 10^6/uL (3.85-5.65) 03/30/24 14:20 Hgb 12.30 g/dL (11.27-16.99) 03/30/24 14:20 Hct 38.7 % (36-47) 03/30/24 14:20 MCV 86.8 fl (85-98) 03/30/24 14:20 MCH 27.6 pg (27-33) 03/30/24 14:20 MCHC 31.8 g/dL (30-55) 03/30/24 14:20 RDW 13.3 % (12.1-15.1) 03/30/24 14:20 Plt Count 228 10^3/cmm (157-399) 03/30/24 14:20 MPV 10.3 fL (7.4-10.4) 03/30/24 14:20 Neut % (Auto) 82.0 % 03/30/24 14:20 Lymph % (Auto) 12.3 % 03/30/24 14:20 [place] % (Auto) 5.2 % 03/30/24 14:20 Eos % (Auto) 0.0 % 03/30/24 14:20 Baso % (Auto) 0.2 % 03/30/24 14:20 Neut # (Auto) 7.98 10^3/uL (1.8-7.7) H 03/30/24 14:20 Lymph # (Auto) 1.2 10^3/uL (0.8-4.8) 03/30/24 14:20 [place] # (Auto) 0.5 10^3/uL (0.2-0.9) 03/30/24 14:20 Eos # (Auto) 0.0 10^3/uL (0.0-0.8) 03/30/24 14:20 Baso # (Auto) 0.0 10^3/uL (0.0-0.1) 03/30/24 14:20 Nucleated RBC % (auto) 0 % 03/30/24 14:20 Nucleated RBCs # 0.0 /100WBC 03/30/24 14:20 Sodium 139 mmol/L (136-145) 03/30/24 14:20 Potassium 3.9 mmol/L (3.5-5.1) 03/30/24 14:20 Chloride 102 mmol/L (98-107) 03/30/24 14:20 Carbon Dioxide 27 mmol/L (22-29) 03/30/24 14:20 Anion Gap 13.9 (5-19) 03/30/24 14:20 BUN 10 mg/dL (6-20) 03/30/24 14:20 Creatinine 0.6 mg/dL (0.5-0.9) 03/30/24 14:20 GFR Calculation 123.9 mL/min (90-130) 03/30/24 14:20 Glucose 101 mg/dL (65-115) 03/30/24 14:20 Calculated Osmolality 287 mOsm/kg (285-295) 03/30/24 14:20 Calcium 10.6 mg/dL (8.5-10.5) H 03/30/24 14:20 Total Bilirubin 0.6 mg/dL (0.15-1.2) 03/30/24 14:20 AST 112 U/L (0-32) H 03/30/24 14:20 ALT 65 U/L (0-33) H 03/30/24 14:20 Alkaline Phosphatase 90 U/L (35-105) 03/30/24 14:20 Total Protein 7.4 g/dL (6.6-8.7) 03/30/24 14:20 Albumin 4.6 g/dL (3.5-5.2) 03/30/24 14:20 Globulin 2.8 g/dL (1.3-4.6) 03/30/24 14:20 Lipase 19 U/L (13-60) 03/30/24 14:20 HCG, Qual Negative (Negative) 03/30/24 14:20 Urine Color Yellow (Yellow) 03/30/24 14:25 Urine Appearance Cloudy (CLEAR) A 03/30/24 14:25 Urine pH 7.5 (5-7) 03/30/24 14:25 Ur Specific [place] 1.027 (1.005-1.030) 03/30/24 14:25 Urine Protein Trace (Negative) A 03/30/24 14:25 Urine Glucose (UA) Negative (Normal) 03/30/24 14:25 Urine Ketones Trace (Negative) 03/30/24 14:25 Urine Blood Negative (Negative) 03/30/24 14:25 Urine Nitrate Negative (Negative) 03/30/24 14:25 Urine Bilirubin Negative (Negative) 03/30/24 14:25 Urine Urobilinogen 1.0 mg/dL (Negative) 03/30/24 14:25 Ur Leukocyte Esterase Trace (Negative) A 03/30/24 14:25 Urine RBC 0-4 /hpf (0-2) H 03/30/24 14:25 Urine WBC 0-4 /hpf (0-5) H 03/30/24 14:25 Ur Squamous Epith Cells 0-4 /hpf (0-5) H 03/30/24 14:25 Amorphous Sediment 1+ /hpf 03/30/24 14:25 Urine Bacteria 1+ /hpf (NONE) H 03/30/24 14:25 Hyaline Casts 5-10 /lpf H 03/30/24 14:25 Urine Mucus 1+ /hpf 03/30/24 14:25 All radiology interpretation(s) finalized by discharge Discharge Plan Discharge Patient Disposition: Home Clinical Impression: Abdominal pain Condition: Stable Prescriptions: New pantoprazole [Protonix] 40 mg tablet,delayed release (DR/EC) 40 mg PO DAILY Qty: 60 0RF ondansetron 4 mg tablet,disintegrating 4 mg PO Q6H PRN (Reason: nausea and vomiting) Qty: 14 0RF Discharge Orders: Discharge ED (Routine); Ordered 03/30/24 Ordered By: Arti [place] Referrals: Rashad Askew DO [Physician] - 4-7 days Mauro Lee MD [Primary Care Provider] - Discharge Diet: Advance as tolerated Discharge Activity: Resume usual activity Patient Instructions: Abdominal Pain (ED) Coding Level of Care Code ED Integrated Marketing Specialist for Sandra Jerome
[2024-03-30] MEDS: lidocaine 2% viscous 15 ML, aluminum-mag hydrox-simethicon 30 ML, sucralfate oral liq 1 GM PO (15:31)
[2024-03-30] MEDS: ondansetron 2 mg/ML SDV 2 mL 4 MG IVP (15:31)
[2024-03-30] MEDS: HYDROcodone-acetaminophen 5-325 mg Tablet 1 TAB PO (17:29)
[2024-03-30 17:56] VITALS: BP 111/90; PULSE 74; RESP 16; O2SAT 100
--- NOTE | 2024-04-01 07:50 | DCPLANNER ---
messaged gen surg for er f/u
== END 2024-03-30 17:31 | disposition home or self-care (01) ==
PROVIDERS: Emergency Provider Emergency Medicine; PCP Family Medicine
DX: R10.10 Upper abdominal pain, unspecified (principal)
CPT/HCPCS: 74177; 80053; 81001; 83690; 84703; 85025; 96374; 99285; J2405; Q9967